=== PATIENT | male | born 1990 | race Caucasian/White ===

== ENCOUNTER 2017-01-04 02:06 | Emergency (ER) | payer BC ==
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
[2017-01-04 03:21] LABS: ABSOLUTE EOSINOPHILS # (AUTO) 0.1 10^3/uL (0.0-0.6); ABSOLUTE LYMPHOCYTES (AUTO) 1.6 10^3/uL (0.5-4.7); ABSOLUTE MONOCYTES (AUTO) 0.9 10^3/uL (0.1-1.4); ABSOLUTE NEUT (AUTO) 9.6 10^3/uL (1.7-8.2); BASOPHILS % (AUTO) 0.4 % (0-2); HEMATOCRIT 38.1 % (37.9-51.0); HEMOGLOBIN 12.9 g/dL (13.5-17.0); HGB HCT DIFFERENCE 0.6; LYMPHOCYTES % (AUTO) 13.4 % (13-45); MEAN CORPUSCULAR HEMOGLOBIN 29.1 pg (27.0-33.4); MEAN CORPUSCULAR HGB CONC 33.8 g/dL (32.0-36.0); MEAN CORPUSCULAR VOLUME 86 fl (80-97); MONOCYTES % (AUTO) 7.4 % (3-13); RED BLOOD COUNT 4.43 10^6/uL (4.35-5.55); SEGMENTED NEUTROPHILS % (AUTO) 77.8 % (42-78); WHITE BLOOD COUNT 12.3 10^3/uL (4.0-10.5)
[2017-01-04 03:39] LABS: ANION GAP 9 (5-19); BLOOD UREA NITROGEN 17 mg/dL (7-20); CALCIUM 9.7 mg/dL (8.4-10.2); CARBON DIOXIDE 26 mmol/L (22-30); CHLORIDE 101 mmol/L (98-107); CREATININE RESULT 0.91 mg/dL (0.52-1.25); GLUCOSE 97 mg/dL (75-110); POTASSIUM 4.1 mmol/L (3.6-5.0); SODIUM 136.1 mmol/L (137-145)
== END 2017-01-04 05:50 | disposition home or self-care (01) ==
LOC: ER 02:06
DX: M54.9 Dorsalgia, unspecified (principal); R30.0 Dysuria; R11.10 Vomiting, unspecified; D72.829 Elevated white blood cell count, unspecified; F17.200 Nicotine dependence, unspecified, uncomplicated; Z53.20 Procedure and treatment not carried out because of patient's decision for unspecified reasons
CPT/HCPCS: 36415; 74176; 80048; 85025; 99284

== ENCOUNTER 2017-03-05 04:30 | Emergency (ER) | payer SELFPAY ==
[2017-03-05] MEDS ORDERED: ACETAMINOPHEN 325 MG TABLET PO ONE (04:52)
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
[2017-03-05] MEDS ORDERED: IBUPROFEN 600 MG TABLET PO ONE (06:56)
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
[2017-03-05 08:26] VITALS: BP 122/69
== END 2017-03-05 08:24 | disposition home or self-care (01) ==
LOC: ER 04:30
DX: S02.2XXA Fracture of nasal bones, initial encounter for closed fracture (principal); F17.200 Nicotine dependence, unspecified, uncomplicated; Y04.8XXA Assault by other bodily force, initial encounter
CPT/HCPCS: 70486; 99284

== ENCOUNTER 2017-03-18 02:13 | Emergency (ER) | payer SELFPAY ==
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
[2017-03-18 05:00] VITALS: BP 130/74
== END 2017-03-18 04:58 | disposition home or self-care (01) ==
LOC: ER 02:13
DX: S02.2XXA Fracture of nasal bones, initial encounter for closed fracture (principal); X58.XXXA Exposure to other specified factors, initial encounter; L29.9 Pruritus, unspecified; F17.200 Nicotine dependence, unspecified, uncomplicated
CPT/HCPCS: 99283

== ENCOUNTER 2017-03-28 22:17 | Emergency (ER) | payer SELFPAY ==
[2017-03-28 22:41] VITALS: BP 127/93
[2017-03-28] MEDS ORDERED: TETRACAINE HCL 0.5% OPH SOLN 2 ML OD ONE (22:55)
== END 2017-03-29 00:30 | disposition left against medical advice (07) ==
LOC: ER 22:17
DX: Z53.21 Procedure and treatment not carried out due to patient leaving prior to being seen by health care provider (principal)

== ENCOUNTER 2017-04-01 11:35 | Emergency (ER) | payer SELFPAY ==
[2017-04-01] MEDS ORDERED: ASPIRIN 325 MG TABLET PO ONE (11:41)
--- NOTE | 2017-04-01 12:03 | ER Document Report ---
ED Medical Screen (RME) - General Chief Complaint: Drug Abuse Stated Complaint: CHEST TIGHTNESS Time Seen by Provider: 04/01/17 11:39 Mode of Arrival: Wheelchair Information source: Patient TRAVEL OUTSIDE OF THE [place] IN LAST 30 DAYS: No - HPI Patient complains to provider of: CP - Related Data Allergies/Adverse Reactions: No Known Allergies Allergy (Verified 03/28/17 22:36) Past Medical History Renal/ Medical History: Denies: Hx Kidney Stones, Hx Peritoneal Dialysis - Immunizations Hx Diphtheria, Pertussis, Tetanus Vaccination: Yes - Unknown
[2017-04-01 12:32] LABS: ABSOLUTE LYMPHOCYTES (AUTO) 1.2 10^3/uL (0.5-4.7); ABSOLUTE MONOCYTES (AUTO) 0.5 10^3/uL (0.1-1.4); BASOPHILS % (AUTO) 0.4 % (0-2); EOSINOPHILS % (AUTO) 0.1 % (0-6); HEMATOCRIT 41.9 % (37.9-51.0); HEMOGLOBIN 14.2 g/dL (13.5-17.0); HGB HCT DIFFERENCE 0.7; LYMPHOCYTES % (AUTO) 15.2 % (13-45); MEAN CORPUSCULAR HEMOGLOBIN 28.8 pg (27.0-33.4); MEAN CORPUSCULAR HGB CONC 33.9 g/dL (32.0-36.0); MEAN CORPUSCULAR VOLUME 85 fl (80-97); RED BLOOD COUNT 4.94 10^6/uL (4.35-5.55); RED CELL DISTRIBUTION WIDTH 14.1 % (11.5-14.0); SEGMENTED NEUTROPHILS % (AUTO) 78.3 % (42-78); WHITE BLOOD COUNT 7.6 10^3/uL (4.0-10.5)
[2017-04-01 12:45] LABS: ALANINE AMINOTRANSFERASE 139 U/L (21-72); ALBUMIN 4.7 g/dL (3.5-5.0); ALKALINE PHOSPHATASE 110 U/L (38-126); ANION GAP 11 (5-19); ASPARTATE AMINO TRANSFERASE 112 U/L (17-59); BILIRUBIN,DIRECT 0.4 mg/dL (0.0-0.4); BILIRUBIN,TOTAL 0.5 mg/dL (0.2-1.3); BLOOD UREA NITROGEN 14 mg/dL (7-20); CALCIUM 10.3 mg/dL (8.4-10.2); CARBON DIOXIDE 27 mmol/L (22-30); CHLORIDE 100 mmol/L (98-107); CREATINE KINASE 155 U/L (55-170); CREATININE RESULT 0.76 mg/dL (0.52-1.25); GLUCOSE 118 mg/dL (75-110); POTASSIUM 4.4 mmol/L (3.6-5.0); SODIUM 137.7 mmol/L (137-145); TOTAL PROTEIN 8.1 g/dL (6.3-8.2)
[2017-04-01 12:57] LABS: CREATINE KINASE MB 2.45 ng/mL (<4.55)
[2017-04-01 12:58] LABS: TROPONIN I < 0.012 ng/mL
--- NOTE | 2017-04-01 13:03 | ER Document Report ---
ED General - General Chief Complaint: Drug Abuse Stated Complaint: CHEST TIGHTNESS Time Seen by Provider: 04/01/17 11:39 Mode of Arrival: Wheelchair Information source: Patient Notes: 27-year-old male who uses cocaine and opioids presents with complaints of left nostril pain with infection and right eye redness with drainage of a few week duration. Patient denies any fevers or chills notes he used cocaine today. Patient initially stated that he was having chest tightness however denies this on my evaluation TRAVEL OUTSIDE OF THE [place] IN LAST 30 DAYS: No - HPI Onset: Other - 2-3 week duration Onset/Duration: Persistent Quality of pain: Achy Severity: Mild Pain Level: 1 Associated symptoms: Other Exacerbated by: Denies Relieved by: Denies Similar symptoms previously: No Recently seen / treated by doctor: No - Related Data Allergies/Adverse Reactions: No Known Allergies Allergy (Verified 03/28/17 22:36) Past Medical History - General Information source: Patient - Social History Smoking Status: Current Every Day Smoker Cigarette use (# per day): Yes Chew tobacco use (# tins/day): No Smoking Education Provided: No Frequency of alcohol use: Social Drug Abuse: Cocaine, Heroin, Marijuana, Prescription drugs Family History: Reviewed & Not Pertinent, CAD, Hyperlipidemia, Hypertension Renal/ Medical History: Denies: Hx Kidney Stones, Hx Peritoneal Dialysis - Immunizations Hx Diphtheria, Pertussis, Tetanus Vaccination: Yes - Unknown Review of Systems - Review of Systems Notes: REVIEW OF SYSTEMS: CONSTITUTIONAL : Denies fever, chills, or sweats. Denies recent illness. EENT: Admits redness drainage of the eye on the right CARDIOVASCULAR: Denies chest pain. Denies palpitations or racing or irregular heart beat. Denies ankle edema. RESPIRATORY: Denies cough, cold, or chest congestion. Denies shortness of breath, difficulty breathing, or wheezing. GASTROINTESTINAL: Denies abdominal pain or distention. Denies nausea, vomiting , or diarrhea. Denies blood in vomitus, stools, or per rectum. Denies black, tarry stools. Denies constipation. GENITOURINARY: Denies difficulty urinating, painful urination, burning, frequency, blood in urine, or discharge. MUSCULOSKELETAL: Denies back or neck pain or stiffness. Denies joint pain or swelling. SKIN: Denies rash, lesions or sores. HEMATOLOGIC : Denies easy bruising or bleeding. LYMPHATIC: Denies swollen, enlarged glands. NEUROLOGICAL: Denies confusion or altered mental status. Denies passing out or loss of consciousness. Denies dizziness or lightheadedness. Denies headache. Denies weakness or paralysis or loss of use of either side. Denies problems with gait or speech. Denies sensory loss, numbness, or tingling. Denies seizures. PSYCHIATRIC: Denies anxiety or stress. Denies depression, suicidal ideation, or homicidal ideation. ALL OTHER SYSTEMS REVIEWED AND NEGATIVE. Dictation was performed using [employer] recognition software PHYSICAL EXAMINATION: GENERAL: Well-appearing, well-nourished and in no acute distress. HEAD: Atraumatic, normocephalic. EYES: Pupils equal round and reactive to light, extraocular movements intact no tenderness with movement of the eye, sclera anicteric, left conjunctiva is normal right is erythematous with white discharge ENT: Right nostril is clear left appears to have a small superficial pimple versus abscess NECK: Normal range of motion, supple without lymphadenopathy LUNGS: Breath sounds clear to auscultation bilaterally and equal. No wheezes rales or rhonchi. HEART: Regular rate and rhythm without murmurs ABDOMEN: Soft, nontender, nondistended abdomen. No guarding, no rebound. No masses appreciated. Musculoskeletal: Normal range of motion, no pitting or edema. No cyanosis. NEUROLOGICAL: Cranial nerves grossly intact. Normal speech, normal gait. Normal sensory, motor exams PSYCH: Normal mood, normal affect. SKIN: Warm, Dry, normal turgor, no rashes or lesions noted. Physical Exam - Vital signs Vitals: Temp Pulse Resp BP Pulse Ox 98.6 F 109 H 20 145/92 H 95 04/01/17 11:41 04/01/17 11:41 04/01/17 11:41 04/01/17 11:41 04/01/17 11:41 Course - Re-evaluation Re-evalutation: 04/01/17 13:03 Patient denies any chest pain on my evaluation, his concerns are his right eye is red with discharge and the swelling of his left nostril and facial pain. He admits to cocaine abuse denies any shortness of breath difficulty breathing 04/01/17 14:24 04/01/17 16:34 Patient otherwise looks well is in no distress at this time he requests to leave , he does not want any help with his addictions. I will discharge him with antibiotics for his eyes and for his nostril Patient does not want any assistance for this chest pain that he stated After performing a Medical Screening Examination, I estimate there is LOW risk for any life threatening mental health issues. At this time the patient looks extremely well and has not attempted severe self harm. I have reevaluated this patient multiple times and no significant life threatening changes are noted. The patient and I have discussed the diagnosis and risks, and we agree with discharging home with close follow-up with the understanding that symptoms and presentations can change. We also discussed returning to the Emergency Department immediately if new or worsening symptoms occur. We have discussed the symptoms which are most concerning (hallucinations, thoughts or actions of self harm or harm to others) that necessitate immediate return. - Vital Signs Vital signs: Temp Pulse Resp BP Pulse Ox 98.6 F 109 H 13 104/62 100 04/01/17 11:41 04/01/17 11:41 04/01/17 15:01 04/01/17 15:00 04/01/17 15:01 - Laboratory Result Diagrams: 04/01/17 12:13 04/01/17 12:13 Laboratory results interpreted by me: 04/01/17 04/01/17 12:13 12:13 RDW 14.1 H Seg Neutrophils % 78.3 H Glucose 118 H Calcium 10.3 H AST 112 H ALT 139 H - Diagnostic Test Radiology reviewed: Image reviewed, Reports reviewed - EKG Interpretation by Me EKG shows normal: Sinus rhythm, [place], Intervals, QRS Complexes Discharge - Discharge Clinical Impression: Infection of nose, Drug abuse, Heroin abuse, Cocaine abuse Conjunctivitis Qualifiers: Conjunctivitis type: acute Acute conjunctivitis type: bacterial Laterality: right Qualified Code(s): H10.31 - Unspecified acute conjunctivitis, right eye Condition: Stable Disposition: HOME, SELF-CARE Instructions: MRSA Cellulitis ([facility]), Conjunctivitis ([facility]) Additional Instructions: Narcotic Abuse Please seek substance abuse assessment and services. There are services available to you, regardless of health insurance. At this time, you have refused all services and offers to assist in coordinating care. You have been provided a list of resources to assist you should you chose to do so, to include mobile crisis. Please return if your symptoms worsen. Please stop using drugs. Prescriptions: Ciprofloxacin HCl [Ciloxan 0.3% Oph Soln 2.5 ml] 1 drop OP Q2 #1 bottle Mupirocin 1 gm TP BID #1 oint..gm. Referrals: [facility] [Provider Group] - Follow up tomorrow REZA SOTELO DO [ACTIVE STAFF] - 04/02/17
--- NOTE | 2017-04-01 13:30 | RADIOLOGY REPORT (SQ) ---
EXAM DESCRIPTION: CHEST PA/LAT COMPLETED DATE/TIME: 04/01/2017 1:09 pm REASON FOR STUDY: cp COMPARISON: February 2015 EXAM PARAMETERS: NUMBER OF VIEWS: two views TECHNIQUE: Digital Frontal and Lateral radiographic views of the chest acquired. RADIATION DOSE: NA LIMITATIONS: none FINDINGS: LUNGS AND PLEURA: No opacities, masses or pneumothorax. No pleural effusion. MEDIASTINUM AND HILAR STRUCTURES: No masses or contour abnormalities. HEART AND VASCULAR STRUCTURES: Heart normal size. No evidence for failure. BONES: No acute findings. HARDWARE: None in the chest. OTHER: No other significant finding. IMPRESSION: NO SIGNIFICANT RADIOGRAPHIC FINDING IN THE CHEST. TECHNICAL DOCUMENTATION: JOB ID: [id number] [employer]- All Rights Reserved
[2017-04-01 14:04] LABS: URINE BARBITURATES SCREEN NEGATIVE; URINE METHADONE SCREEN NEGATIVE; URINE OPIATES LOW UNCONFIRMED POSITIVE; URINE PHENCYCLIDINE SCREEN NEGATIVE
[2017-04-01 15:33] VITALS: BP 104/62
--- NOTE | 2017-04-01 16:04 | ER Document Report ---
ED Psych Disorder / Suicide - General Chief Complaint: Drug Abuse Stated Complaint: CHEST TIGHTNESS Time Seen by Provider: 04/01/17 11:39 Mode of Arrival: Wheelchair Information source: Patient, [facility] Records TRAVEL OUTSIDE OF THE [place] IN LAST 30 DAYS: No - HPI Patient complains to provider of: Other - drug abuse Onset: Other Onset was: Cannot confirm Suicide Risk Factors: Substance abuse - cocaine Normal mood: No Associated symptoms: Tactile hallucinations - feels microscopic bugs crawling on his arms, Visual hallucinations Similar symptoms previously: Yes Recently seen / treated by doctor: No Notes: Patient is a 27 year old male who presents to [facility] ED via EMS due to c/o chest pains, and eye drainage. Patient acknowledges abusing cocaine, which is considered a contributing factor to his presenting symptoms. Patient at this time is sleeping and while easy to arouse, struggles to remain awake. Later in the afternoon, patient was A&O. Patient denies wanting help for drug abuse and or detox. Patient denies suicidal ideations. Patient stated he wants to know where his sister was. Patient was advised that he could call his sister. Patient states he would like to leave. Patient's sister, Usha Yates states the patient has been using drugs, possibly for about 3 years. She states this began with prescription pills, but also is common within their family (mother, father, and patient's twin brother). Sister states he currently abuses anything he can get his hands on. She states for the past 2 weeks he has been staying in her home with her immediate family. Sister reports prior to that, he resided with their mother and grandmother; however, their mother unexpectedly in the home after a brief period of feeling ill. Sister reports the grandmother forced the patient to leave due to SA and also blaming him for not bringing his mother to the doctor. She states he has since inherited a large sum of money, and in 2 weeks has spent $20,000 on Heroin, and possibly other drugs. She states the patient has moments where he states he wants to stop using drugs, but she states she fears until the money runs out, she is not sure he will. She does report his twin brother has successfully engaged in a residential treatment program near [place]. Sister reports when he is cleared he is able to return to her home, although she quickly denounces his drug use and reports discord now in her home as a result. Sister reports concerns for depression, and states he does everything in extreme, and always has. Patient is A&O. Mood is irritable with congruent affect. Patient denies suicidal/homicidal ideations, intent, plan, or means. Patient denies A/V H; delusions not noted. Thought processes were guarded. Conversational speech was labile for prosody. Intellectual abilities were estimated within average range. Attention and focus were poor. Insight, judgment, and impulse control were poor. Opioid Use Disorder, per history Polysubstance Use Disorder Patient is psychiatrically cleared for discharge. Patient is recommended for detox and or substance abuse placement. Patient has reportedly had accidental overdoses in the past requiring Narcan. Patient refuses assistance for coordination of such services. Patient provided resources to include mobile crisis. I consulted with Dr. Perez in regards to the care and management of this patient. ED MD is in agreement with disposition and recommendations. - Related Data Allergies/Adverse Reactions: No Known Allergies Allergy (Verified 03/28/17 22:36) Past Medical History - General Information source: Patient, Relative - sister, [facility] Records - Social History Smoking Status: Current Every Day Smoker Chew tobacco use (# tins/day): No Frequency of alcohol use: Social Drug Abuse: Cocaine, Heroin, Marijuana, Prescription drugs Family History: Reviewed & Not Pertinent, CAD, Hyperlipidemia, Hypertension Patient has suicidal ideation: No Patient has homicidal ideation: No Renal/ Medical History: Denies: Hx Kidney Stones, Hx Peritoneal Dialysis - Immunizations Hx Diphtheria, Pertussis, Tetanus Vaccination: Yes - Unknown Physical Exam - Vital signs Vitals: Temp Pulse Resp BP Pulse Ox 98.6 F 109 H 20 145/92 H 95 04/01/17 11:41 04/01/17 11:41 04/01/17 11:41 04/01/17 11:41 04/01/17 11:41 Course - Vital Signs Vital signs: Temp Pulse Resp BP Pulse Ox 98.6 F 109 H 13 104/62 100 04/01/17 11:41 04/01/17 11:41 04/01/17 15:01 04/01/17 15:00 04/01/17 15:01 - Laboratory Result Diagrams: 04/01/17 12:13 04/01/17 12:13 Laboratory results interpreted by me: 04/01/17 04/01/17 12:13 12:13 RDW 14.1 H Seg Neutrophils % 78.3 H Glucose 118 H Calcium 10.3 H AST 112 H ALT 139 H Discharge - Discharge Clinical Impression: Drug abuse, Heroin abuse, Cocaine abuse Condition: Stable Disposition: HOME, SELF-CARE Additional Instructions: Narcotic Abuse Please seek substance abuse assessment and services. There are services available to you, regardless of health insurance. At this time, you have refused all services and offers to assist in coordinating care. You have been provided a list of resources to assist you should you chose to do so, to include mobile crisis. Please return if your symptoms worsen. Please stop using drugs. Referrals: [facility] [Provider Group] - Follow up tomorrow
--- NOTE | 2017-04-01 23:02 | EKG REPORT ---
SEVERITY:- NORMAL ECG - SINUS RHYTHM : Confirmed by: Radha Veras 01-Apr-2017 23:01:47
== END 2017-04-01 16:04 | disposition home or self-care (01) ==
LOC: ER 11:35
DX: F14.10 Cocaine abuse, uncomplicated (principal); F11.10 Opioid abuse, uncomplicated; F12.10 Cannabis abuse, uncomplicated; R07.89 Other chest pain; R44.2 Other hallucinations; R44.1 Visual hallucinations; H57.8 Other specified disorders of eye and adnexa; R51 Headache; H10.31 Unspecified acute conjunctivitis, right eye; B99.9 Unspecified infectious disease; F17.210 Nicotine dependence, cigarettes, uncomplicated
CPT/HCPCS: 36415; 71020; 80053; 80307; 82550; 82553; 84484; 85025; 93005; 93010; 99285

== ENCOUNTER 2017-11-01 23:03 | Emergency (ER) | payer SELFPAY ==
[2017-11-01] MEDS ORDERED: ALBUTEROL SULFATE 0.083% NEB 2.5 MG/3 ML AMPUL NEB ONE (23:50)
[2017-11-01] MEDS ORDERED: IPRATROPIUM BROMIDE 0.02% NEB 0.5 MG/2.5 ML AMPUL NEB ONE (23:50)
[2017-11-01] MEDS ORDERED: NORMAL SALINE 1000 ML 1,000 ML IV ONE (23:51)
--- NOTE | 2017-11-01 23:52 | ER Document Report ---
ED General - General Chief Complaint: Shortness Of Breath Stated Complaint: BREATHING DIFFICULTY Time Seen by Provider: 11/01/17 23:33 Information source: Patient Notes: 27-year-old male with no reported past medical history presents via EMS from home with complaint of shortness of breath and right-sided chest pain. Patient states that he was working in the garage with a sawzall just prior to arrival which created a lot of dust which caused him to start coughing. He said he coughed so hard that he immediately felt a intense pain in his right rib cage. He states since that time he has felt short of breath and unable to speak in full sentences. He denies any drug or alcohol use. He does admit to smoking 1 pack of cigarettes per day. He denies prior similar symptoms. He denies any recent illnesses, fever, chills, nausea, vomiting. Patient is currently under house arrest. TRAVEL OUTSIDE OF THE [place] IN LAST 30 DAYS: No - HPI Onset: Just prior to arrival Onset/Duration: Constant Quality of pain: Stabbing, Throbbing Severity: Moderate Associated symptoms: denies: Fever - Related Data Allergies/Adverse Reactions: No Known Allergies Allergy (Verified 11/01/17 23:05) Past Medical History - Social History Smoking Status: Current Every Day Smoker Cigarette use (# per day): Yes - 20 Chew tobacco use (# tins/day): No Smoking Education Provided: Yes Frequency of alcohol use: None Drug Abuse: None Lives with: Family Family History: Reviewed & Not Pertinent, CAD, Hyperlipidemia, Hypertension Patient has suicidal ideation: No Patient has homicidal ideation: No Renal/ Medical History: Denies: Hx Kidney Stones, Hx Peritoneal Dialysis - Immunizations Hx Diphtheria, Pertussis, Tetanus Vaccination: Yes - Unknown Review of Systems - Review of Systems Constitutional: denies: Fever EENT: No symptoms reported Cardiovascular: Chest pain, Dyspnea. denies: Palpitations, Heart racing Respiratory: Cough, Hurts to breathe, Short of breath. denies: Hemoptysis, Wheezing Gastrointestinal: Nausea. denies: Vomiting Genitourinary: No symptoms reported Physical Exam - Vital signs Vitals: Temp Pulse Resp BP Pulse Ox 98.8 F 123 H 26 H 127/73 H 95 11/01/17 23:08 11/01/17 23:08 11/01/17 23:08 11/01/17 23:08 11/01/17 23:08 - General General appearance: Appears well, Alert - HEENT Head: Normocephalic, Atraumatic Eyes: Normal Conjunctiva: Normal Extraocular movements intact: Yes Pupils: PERRL - Respiratory Respiratory status: No respiratory distress Chest status: Tender - Right sided rib tenderness., Pain with deep breathing. No: Ecchymosis Breath sounds: Normal Chest palpation: Normal - Cardiovascular Rhythm: Regular, Tachycardia Heart sounds: Normal auscultation Murmur: No - Psychological Associated symptoms: Normal affect, Normal mood. No: Aggressive, Depressed - Denies SI/HI Course - Re-evaluation Re-evalutation: 11/02/17 01:26 27 -year-old male presents via EMS from home with complaint of right-sided chest pain and shortness of breath. Upon arrival vitals were reviewed. Patient is tachycardic but afebrile and not hypoxic.Exam is significant for tenderness along the right lateral rib cage without any evidence of ecchymosis crepitus or injury.Patient received 1 L of IV fluids for his tachycardia. He received breathing treatments while in the department and his chest x-ray was within normal limits. On reevaluation patient states he is feeling better. Tachycardia has resolved. D-dimer was obtained and within normal limits. Patient requesting discharge home.Patient will be discharged home in stable condition. Laboratory 11/02/17 00:13 D-Dimer 0.51 H Chest X-Ray 11/01/17 23:49 IMPRESSION: No acute cardiopulmonary findings. 11/02/17 02:55 - Vital Signs Vital signs: Temp Pulse Resp BP Pulse Ox 98.8 F 123 H 10 L 115/71 97 11/01/17 23:08 11/01/17 23:08 11/02/17 01:01 11/02/17 01:01 11/02/17 01:01 - Laboratory Laboratory results interpreted by me: 11/02/17 00:13 D-Dimer 0.51 H Discharge - Discharge Clinical Impression: Acute chest wall pain Condition: Good Disposition: HOME, SELF-CARE Instructions: Chest Wall Pain ([facility]) Prescriptions: Ibuprofen [Motrin 600 Mg Tablet] 600 mg PO TID #15 tablet
--- NOTE | 2017-11-02 01:00 | RADIOLOGY REPORT (SQ) ---
EXAM DESCRIPTION: CHEST PA/LAT CLINICAL HISTORY: 27 years, Male, sob cp tachy COMPARISON: 04/01/2017 FINDINGS: Increased lung volume, clear parenchyma, normal cardiac silhouette, and intact bony thorax. IMPRESSION: No acute cardiopulmonary findings.
[2017-11-02 01:31] VITALS: BP 115/71
--- NOTE | 2017-11-02 08:02 | EKG REPORT ---
SEVERITY:- NORMAL ECG - SINUS RHYTHM : Confirmed by: Chente Moreno MD 02-Nov-2017 08:02:15
== END 2017-11-02 01:31 | disposition home or self-care (01) ==
LOC: ER 23:03
DX: R07.89 Other chest pain (principal); R06.02 Shortness of breath; R05 Cough; R11.0 Nausea; R00.0 Tachycardia, unspecified; F17.210 Nicotine dependence, cigarettes, uncomplicated; Z82.49 Family history of ischemic heart disease and other diseases of the circulatory system
CPT/HCPCS: 93005; 94640; 99284; 36415; 85379; 71046; 93010; J7030; J3490

== ENCOUNTER 2018-04-02 03:38 | Emergency (ER) | payer SELFPAY ==
[2018-04-02 06:15] LABS: ABSOLUTE EOSINOPHILS # (AUTO) 0.1 10^3/uL (0.0-0.6); ABSOLUTE LYMPHOCYTES (AUTO) 1.6 10^3/uL (0.5-4.7); ABSOLUTE MONOCYTES (AUTO) 0.8 10^3/uL (0.1-1.4); ABSOLUTE NEUT (AUTO) 7.6 10^3/uL (1.7-8.2); BASOPHILS % (AUTO) 0.5 % (0-2); EOSINOPHILS % (AUTO) 1.1 % (0-6); HEMATOCRIT 38.8 % (37.9-51.0); HEMOGLOBIN 13.4 g/dL (13.5-17.0); LYMPHOCYTES % (AUTO) 15.5 % (13-45); MEAN CORPUSCULAR HEMOGLOBIN 29.3 pg (27.0-33.4); MEAN CORPUSCULAR HGB CONC 34.5 g/dL (32.0-36.0); MEAN CORPUSCULAR VOLUME 85 fl (80-97); MONOCYTES % (AUTO) 7.7 % (3-13); PLATELET COUNT 192 10^3/uL (150-450); RED BLOOD COUNT 4.56 10^6/uL (4.35-5.55); RED CELL DISTRIBUTION WIDTH 13.5 % (11.5-14.0); SEGMENTED NEUTROPHILS % (AUTO) 75.2 % (42-78); TOTAL CELLS COUNTED % (AUTO) 100 %; WHITE BLOOD COUNT 10.1 10^3/uL (4.0-10.5)
[2018-04-02 06:33] LABS: ALANINE AMINOTRANSFERASE 26 U/L (21-72); ALBUMIN 4.1 g/dL (3.5-5.0); ALKALINE PHOSPHATASE 63 U/L (38-126); ANION GAP 12 (5-19); ASPARTATE AMINO TRANSFERASE 22 U/L (17-59); BILIRUBIN,DIRECT 0.2 mg/dL (0.0-0.4); BILIRUBIN,TOTAL 0.5 mg/dL (0.2-1.3); BLOOD UREA NITROGEN 17 mg/dL (7-20); CALCIUM 9.2 mg/dL (8.4-10.2); CARBON DIOXIDE 29 mmol/L (22-30); CHLORIDE 99 mmol/L (98-107); CREATINE KINASE 79 U/L (55-170); GLUCOSE 112 mg/dL (75-110); SODIUM 140.3 mmol/L (137-145); TOTAL PROTEIN 7.2 g/dL (6.3-8.2)
--- NOTE | 2018-04-02 06:37 | RADIOLOGY REPORT (SQ) ---
EXAM DESCRIPTION: XR CHEST 1 VIEW COMPLETED DATE/TME: 04/02/2018 05:50 CLINICAL HISTORY: 28 years Male, cp COMPARISON: 3.16.18 NUMBER OF VIEWS/TECHNIQUE: 1/AP FINDINGS: Adequate lung volume, clear parenchyma, normal cardiac silhouette, and grossly intact bony thorax. IMPRESSION: No acute cardiopulmonary findings.
[2018-04-02 06:45] LABS: CREATINE KINASE MB 0.52 ng/mL (<4.55)
[2018-04-02 06:47] LABS: TROPONIN I < 0.012 ng/mL
[2018-04-02] MEDS ORDERED: NORMAL SALINE 1000 ML 1,000 ML IV ONE (06:58)
--- NOTE | 2018-04-02 07:08 | ER Document Report ---
ED Dizziness/Weakness - General Chief Complaint: Dizziness Stated Complaint: CHEST PAIN Time Seen by Provider: 04/02/18 06:34 Notes: 28-year-old male to emergency department chief complaint of chest pain. Patient states he he also feels a little bit dizzy. Chest pain is resolved but when he goes from sitting to standing gets dizzy. Works outside. Recent history of IV drug abuse with heroin being his drug of choice. States that he is worried he may have endocarditis because some of his family members have gotten it after IV drug using. No shortness of breath. No recent surgeries. No long trips or travel. No other major medical problems at this time. TRAVEL OUTSIDE OF THE [place] IN LAST 30 DAYS: No - HPI Patient complains to provider of: Dizziness Onset: Yesterday Onset/Duration: Gradual, Persistent Quality of pain: No pain - Related Data Allergies/Adverse Reactions: No Known Allergies Allergy (Verified 11/01/17 23:05) Past Medical History - General Information source: Patient - Social History Smoking Status: Current Every Day Smoker Cigarette use (# per day): Yes Frequency of alcohol use: Occasional Drug Abuse: Heroin Lives with: Family Family History: Reviewed & Not Pertinent, CAD, Hyperlipidemia, Hypertension Patient has suicidal ideation: No Patient has homicidal ideation: No Renal/ Medical History: Denies: Hx Kidney Stones, Hx Peritoneal Dialysis - Immunizations Hx Diphtheria, Pertussis, Tetanus Vaccination: Yes - Unknown Review of Systems - Review of Systems Constitutional: denies: Fever, Malaise, Weakness EENT: denies: Blurred vision, Difficulty swallowing, Throat swelling, Mouth pain Cardiovascular: Chest pain, Palpitations, Heart racing, Dizziness. denies: Syncope Respiratory: denies: Cough, Hurts to breathe, Hemoptysis, Wheezing Gastrointestinal: denies: Abdominal pain, Diarrhea, Nausea, Vomiting Genitourinary: denies: Burning, Dysuria, Discharge Musculoskeletal: denies: Back pain, Joint pain, Muscle pain, Leg swelling Skin: denies: Change in color, Dryness, Lesions, Lumps, Rash Hematologic/Lymphatic: denies: Anemia, Blood clots, Easy bleeding, Easy bruising Neurological/Psychological: Homicidal ideation. denies: Depression, Hallucinations, Numbness Physical Exam - Vital signs Vitals: Temp Pulse Resp BP Pulse Ox 98.8 F 102 H 18 120/65 99 04/02/18 03:53 04/02/18 03:53 04/02/18 03:53 04/02/18 03:53 04/02/18 03:53 Interpretation: Tachycardic - General General appearance: Appears well, Alert - HEENT Head: Normocephalic, Atraumatic Eyes: Normal Pupils: PERRL - Respiratory Respiratory status: No respiratory distress Chest status: Nontender Breath sounds: Normal Chest palpation: Normal - Cardiovascular Rhythm: Regular Heart sounds: Normal auscultation Murmur: No - Abdominal Inspection: Normal Distension: No distension Bowel sounds: Normal Tenderness: Nontender Organomegaly: No organomegaly - Back Back: Normal, Nontender - Extremities General upper extremity: Normal inspection, Nontender, Normal color, Normal ROM , Normal temperature General lower extremity: Normal inspection, Nontender, Normal color, Normal ROM , Normal temperature, Normal weight bearing. No: Bianca's sign - Neurological Neuro grossly intact: Yes Cognition: Normal Orientation: AAOx4 [place] Coma Scale Eye Opening: Spontaneous [place] Coma Scale Verbal: Oriented [place] Coma Scale Motor: Obeys Commands [place] Coma Scale Total: 15 Speech: Normal Motor strength normal: LUE, RUE, LLE, RLE Sensory: Normal - Psychological Associated symptoms: Normal affect, Normal mood - Skin Skin Temperature: Warm Skin Moisture: Dry Skin Color: Normal Course - Re-evaluation Re-evalutation: 04/02/18 09:07 She feeling much better at this time. No fever but blood cultures have been ordered in the event that he does have an underlying endocarditis. He has no murmur. Likely this represents that. Will hydrate and to dissipate discharge shortly. 04/02/18 09:08 Laboratory 04/02/18 04/02/18 04/02/18 05:55 05:55 05:55 WBC 10.1 RBC 4.56 Hgb 13.4 L Hct 38.8 MCV 85 MCH 29.3 MCHC 34.5 RDW 13.5 Plt Count 192 Seg Neutrophils % 75.2 Lymphocytes % 15.5 Monocytes % 7.7 Eosinophils % 1.1 Basophils % 0.5 Absolute Neutrophils 7.6 Absolute Lymphocytes 1.6 Absolute Monocytes 0.8 Absolute Eosinophils 0.1 Absolute Basophils 0.0 Sodium 140.3 Potassium 4.0 Chloride 99 Carbon Dioxide 29 Anion Gap 12 BUN 17 Creatinine 0.82 Est GFR ( Amer) > 60 Est GFR (Non-Af Amer) > 60 Glucose 112 H Calcium 9.2 Total Bilirubin 0.5 Direct Bilirubin 0.2 Neonat Total Bilirubin Not Reportable Neonat Direct Bilirubin Not Reportable Neonat Indirect Bili Not Reportable AST 22 ALT 26 Alkaline Phosphatase 63 Creatine Kinase 79 CK-MB (CK-2) 0.52 Troponin I < 0.012 Total Protein 7.2 Albumin 4.1 Urine Color Urine Appearance Urine pH Ur Specific [place] Urine Protein Urine Glucose (UA) Urine Ketones Urine Blood Urine Nitrite Urine Bilirubin Urine Urobilinogen Ur Leukocyte Esterase Urine WBC (Auto) Urine RBC (Auto) Urine Mucus (Auto) Urine Ascorbic Acid 04/02/18 07:55 WBC RBC Hgb Hct MCV MCH MCHC RDW Plt Count Seg Neutrophils % Lymphocytes % Monocytes % Eosinophils % Basophils % Absolute Neutrophils Absolute Lymphocytes Absolute Monocytes Absolute Eosinophils Absolute Basophils Sodium Potassium Chloride Carbon Dioxide Anion Gap BUN Creatinine Est GFR ( Amer) Est GFR (Non-Af Amer) Glucose Calcium Total Bilirubin Direct Bilirubin Neonat Total Bilirubin Neonat Direct Bilirubin Neonat Indirect Bili AST ALT Alkaline Phosphatase Creatine Kinase CK-MB (CK-2) Troponin I Total Protein Albumin Urine Color YELLOW Urine Appearance CLEAR Urine pH 6.0 Ur Specific [place] 1.011 Urine Protein NEGATIVE Urine Glucose (UA) NEGATIVE Urine Ketones NEGATIVE Urine Blood NEGATIVE Urine Nitrite NEGATIVE Urine Bilirubin NEGATIVE Urine Urobilinogen NEGATIVE Ur Leukocyte Esterase NEGATIVE Urine WBC (Auto) 0 Urine RBC (Auto) 0 Urine Mucus (Auto) RARE Urine Ascorbic Acid NEGATIVE Chest X-Ray 04/02/18 05:50 IMPRESSION: No acute cardiopulmonary findings. 04/02/18 12:53 Laboratory 04/02/18 04/02/18 04/02/18 05:55 05:55 05:55 WBC 10.1 RBC 4.56 Hgb 13.4 L Hct 38.8 MCV 85 MCH 29.3 MCHC 34.5 RDW 13.5 Plt Count 192 Seg Neutrophils % 75.2 Lymphocytes % 15.5 Monocytes % 7.7 Eosinophils % 1.1 Basophils % 0.5 Absolute Neutrophils 7.6 Absolute Lymphocytes 1.6 Absolute Monocytes 0.8 Absolute Eosinophils 0.1 Absolute Basophils 0.0 Sodium 140.3 Potassium 4.0 Chloride 99 Carbon Dioxide 29 Anion Gap 12 BUN 17 Creatinine 0.82 Est GFR ( Amer) > 60 Est GFR (Non-Af Amer) > 60 Glucose 112 H Calcium 9.2 Total Bilirubin 0.5 Direct Bilirubin 0.2 Neonat Total Bilirubin Not Reportable Neonat Direct Bilirubin Not Reportable Neonat Indirect Bili Not Reportable AST 22 ALT 26 Alkaline Phosphatase 63 Creatine Kinase 79 CK-MB (CK-2) 0.52 Troponin I < 0.012 Total Protein 7.2 Albumin 4.1 Urine Color Urine Appearance Urine pH Ur Specific [place] Urine Protein Urine Glucose (UA) Urine Ketones Urine Blood Urine Nitrite Urine Bilirubin Urine Urobilinogen Ur Leukocyte Esterase Urine WBC (Auto) Urine RBC (Auto) Urine Mucus (Auto) Urine Ascorbic Acid Urine Opiates Screen Urine Methadone Screen Ur Barbiturates Screen Ur Phencyclidine Scrn Ur Amphetamines Screen U Benzodiazepines Scrn Urine Cocaine Screen U Marijuana (THC) Screen 04/02/18 04/02/18 07:55 07:55 WBC RBC Hgb Hct MCV MCH MCHC RDW Plt Count Seg Neutrophils % Lymphocytes % Monocytes % Eosinophils % Basophils % Absolute Neutrophils Absolute Lymphocytes Absolute Monocytes Absolute Eosinophils Absolute Basophils Sodium Potassium Chloride Carbon Dioxide Anion Gap BUN Creatinine Est GFR ( Amer) Est GFR (Non-Af Amer) Glucose Calcium Total Bilirubin Direct Bilirubin Neonat Total Bilirubin Neonat Direct Bilirubin Neonat Indirect Bili AST ALT Alkaline Phosphatase Creatine Kinase CK-MB (CK-2) Troponin I Total Protein Albumin Urine Color YELLOW Urine Appearance CLEAR Urine pH 6.0 Ur Specific [place] 1.011 Urine Protein NEGATIVE Urine Glucose (UA) NEGATIVE Urine Ketones NEGATIVE Urine Blood NEGATIVE Urine Nitrite NEGATIVE Urine Bilirubin NEGATIVE Urine Urobilinogen NEGATIVE Ur Leukocyte Esterase NEGATIVE Urine WBC (Auto) 0 Urine RBC (Auto) 0 Urine Mucus (Auto) RARE Urine Ascorbic Acid NEGATIVE Urine Opiates Screen UNCONFIRMED POSITIVE Urine Methadone Screen NEGATIVE Ur Barbiturates Screen NEGATIVE Ur Phencyclidine Scrn NEGATIVE Ur Amphetamines Screen U Benzodiazepines Scrn NEGATIVE Urine Cocaine Screen UNCONFIRMED POSITIVE U Marijuana (THC) Screen NEGATIVE Chest X-Ray 04/02/18 05:50 IMPRESSION: No acute cardiopulmonary findings. - Vital Signs Vital signs: Temp Pulse Resp BP Pulse Ox 98.8 F 98 14 104/59 L 98 04/02/18 03:53 04/02/18 05:38 04/02/18 10:01 04/02/18 10:01 04/02/18 10:01 - Laboratory Result Diagrams: 04/02/18 05:55 04/02/18 05:55 Laboratory results interpreted by me: 04/02/18 04/02/18 05:55 05:55 Hgb 13.4 L Glucose 112 H - EKG Interpretation by Me EKG shows normal: [place], Intervals, QRS Complexes, ST-T Waves Rate: Tachycardia Discharge - Discharge Clinical Impression: Orthostatic dizziness Condition: Good Disposition: HOME, SELF-CARE Instructions: Dizziness ([facility]), Orthostatic Hypotension ([facility])
--- NOTE | 2018-04-02 07:32 | EKG REPORT ---
SEVERITY:- OTHERWISE NORMAL ECG - SINUS TACHYCARDIA : Confirmed by: Chente Moreno MD 02-Apr-2018 07:31:24
[2018-04-02 08:31] LABS: APPEARANCE,URINE CLEAR; BILIRUBIN,URINE NEGATIVE (NEGATIVE); COLOR,URINE YELLOW; GLUCOSE, URINE NEGATIVE (NEGATIVE); KETONES,URINE NEGATIVE (NEGATIVE); LEUKOCYTE ESTERASE,URINE NEGATIVE (NEGATIVE); NITRITE,URINE NEGATIVE (NEGATIVE); PROTEIN,URINE NEGATIVE (NEGATIVE); URINE SPECIFIC GRAVITY 1.011; UROBILINOGEN,URINE NEGATIVE mg/dL (<2.0)
[2018-04-02 08:55] LABS: URINE BARBITURATES SCREEN NEGATIVE; URINE BENZODIAZEPINES SCREEN NEGATIVE; URINE COCAINE SCREEN UNCONFIRMED POSITIVE; URINE MARIJUANA (THC) SCREEN NEGATIVE; URINE METHADONE SCREEN NEGATIVE; URINE PHENCYCLIDINE SCREEN NEGATIVE
[2018-04-02 10:49] VITALS: BP 104/59
== END 2018-04-02 11:01 | disposition home or self-care (01) ==
LOC: ER 03:38
DX: R42 Dizziness and giddiness (principal); R07.9 Chest pain, unspecified; F11.10 Opioid abuse, uncomplicated; R00.2 Palpitations; R00.0 Tachycardia, unspecified; F17.210 Nicotine dependence, cigarettes, uncomplicated; Z82.49 Family history of ischemic heart disease and other diseases of the circulatory system
CPT/HCPCS: 93005; 99284; 96360; 36415; 87040; 82553; 82550; 85025; 80053; 81001; 84484; 80307; 71045; 93010; J7030